=== PATIENT | female | born 1955 | race Caucasian/White ===

== ENCOUNTER 2016-08-02 08:45 | Outpatient (RCR) | payer MEDICARE, MEDICAID ==
[~2016-08-02 08:45] MED LIST: ADV500INH INH; ALBU0.63 INH; ALBU17IN INH; ALLO100T PO; AMBI5TAB PO; AMIT100TA PO; BACL10TA2 PO; CLON0.5T PO; DILA4TAB PO; DULO1CAP2 PO; DULO30CA PO; HYDR25T PO; LIDO1OIN2 TOP; LIDO5DIS36 TD; LYRI150C PO; MACR100C3 PO; MULTCAP PO; NEUR300C PO; PANT40TA2 PO; PROP1TAB29 PO; REQU0.5T PO; ROBA750T4 PO; SING10TA32 PO; SYMB80INH INH; TIOT18INH INH; TOPA50TA7 PO; TRAZ50TA4 PO; VIST25CA PO; VITA100066 PO; VITA500T3 PO; [UNRECOGNIZED DRUG - CODE] PO; [UNRECOGNIZED DRUG - OTHER] PO
== END 2016-08-03 | disposition home or self-care (01) ==
LOC: M OUTALCOH 08:45
PROVIDERS: ATTEND Psychiatry & Neurology Psychiatry
DX: F10.20 Alcohol dependence, uncomplicated (principal); F11.20 Opioid dependence, uncomplicated

== ENCOUNTER → 2016-08-31 | Outpatient (RCR) | payer MEDICARE, MEDICAID | LOC: M OUTALCOH 08-04 08:44 | PROVIDERS: ATTEND Psychiatry & Neurology Psychiatry | DX: F10.20 Alcohol dependence, uncomplicated (principal); F11.20 Opioid dependence, uncomplicated ==

== ENCOUNTER → 2016-09-09 | Outpatient (CLI) | payer MEDICARE, MEDICAID ==
[~2016-09-09] MED LIST changes: +BUPIVACAINE HCL 0.25% 30 ML VIAL As Ordered ONE; +ISOVUE-M 300 61% 15ML VIAL (Q9967) As Ordered ONE; +LIDOCAINE 1% SDV INJ 30 ML VIAL As Ordered ONE; +TRIAMCINOLONE ACETONIDE SUSP 40 MG/ML VIAL (J3301) As Ordered ONE
--- NOTE | 2016-09-09 15:04 | REP ---
PARTIAL LUMBAR SPINE SERIES: TWO VIEWS. HISTORY: Radiofrequency facet block for pain. 1 minute 29 seconds of fluoroscopy time is reported. FINDINGS: A sequence of two fluoroscopically obtained last image hold spot radiographs of the lumbar spine document various needle positions associated with facet ablation injection procedure. Signed by Asad Vinson MD 09/09/2016 04:27 P
--- NOTE | 2016-09-15 01:39 | ECWPNPC ---
PATIENT NAME: NICK CARTAGENA : 1955 GENDER: FEMALE VISIT DATE: 09/09/2016 DISCHARGE DATE: 09/09/16 1250 VISIT LOCKED DATE TIME: PHYSICIAN: ARSALAN JOSEPH RESOURCE: ARSALAN JOSEPH REASON FOR APPOINTMENT 1. RF FACET LEFT SIDE HISTORY OF PRESENT ILLNESS HISTORY OF PRESENT ILLNESS: PAIN THE PATIENT DESCRIBES THE PAIN... FALL RISK SCREENING: SCREENING :NO FALLS IN THE PAST YEAR CURRENT MEDICATIONS TAKING GABAPENTIN 600 MG TABLET 1 CAPSULE ORALLY AT BEDTIME FOR PAIN, NOTES: 09/08/162299 TAKING LIDODERM 5 % PATCH 3 PATCHES TO INTACT SKIN REMOVE AFTER 12 HOURS EXTERNALLY ONCE A DAY, NOTES: 09/07/161999 TAKING TRAZODONE HCL 100 MG TABLET 1 TABLET AT BEDTIME NEEDED ORALLY ONCE A DAY, NOTES: 09/08/162299 TAKING VITAMIN B-6 100 MG TABLET ORALLY DAILY, NOTES: 09/09/16729 TAKING VITAMIN D 2000 UNIT CAPSULE ORALLY DAILY, NOTES: 09/09/16729 TAKING MULTIVITAMIN TABLET CHEWABLE ORALLY DAILY, NOTES: 09/09/16729 TAKING EPIPEN 2-CELIO 0.3 MG/0.3ML SOLUTION AUTO-INJECTOR DIRECTED INJECTION DIRECTED, NOTES: NONE RECENTLY TAKING SINGULAIR 10 MG TABLET 1 TABLET IN THE EVENING ORALLY ONCE A DAY, NOTES: 09/08/162299 TAKING ATORVASTATIN CALCIUM 20 MG TABLET 1 TABLET ORALLY ONCE A DAY, NOTES: 09/09/16729 TAKING CYMBALTA 60 MG CAPSULE DELAYED RELEASE PARTICLES 1 CAPSULE ORALLY WITH FOOD ONCE A DAY FOR PAIN, NOTES: 09/09/16729 TAKING CYMBALTA 30 MG CAPSULE DELAYED RELEASE PARTICLES 1 CAPSULE ORALLY ONCE A DAY FOR PAIN, NOTES: 09/09/16729 TAKING ASPIRIN ADULT LOW DOSE 81 MG TABLET DELAYED RELEASE 1 TABLET ORALLY ONCE A DAY, NOTES: 09/09/16729 TAKING VENTOLIN HFA 90 MCG/ACT AEROSOL SOLUTION 2 PUFFS NEEDED INHALATION EVERY 4 HRS, NOTES: 2-3 DAYS AGO TAKING SPIRIVA HANDIHALER 18 MCG CAPSULE 1 CAPSULE INHALATION ONCE A DAY, NOTES: 09/09/16729 TAKING PANTOPRAZOLE SODIUM 40 MG TABLET DELAYED RELEASE 1 TABLET ORALLY ONCE A DAY, NOTES: 09/09/16729 TAKING SYMBICORT 80-4.5 MCG/ACT AEROSOL 2 PUFFS INHALATION TWICE A DAY, NOTES: 09/09/16 0730 TAKING LYRICA 150 MG CAPSULE 1 CAPSULE ORALLY TWICE A DAY FOR PAIN, NOTES: 09/08/16 1400 TAKING ALBUTEROL SULFATE (2.5 MG/3ML) 0.083% NEBULIZATION SOLUTION 3 ML INHALATION THREE TIMES A DAY NEEDED, NOTES: NONE RECENTLY TAKING COMPRESSOR/NEBULIZER - MISCELLANEOUS DIRECTED TUBING AND INHALATION DEVICE. J44.9 TAKING BUSPIRONE HCL 5 MG TABLET 1 TABLET ORALLY THREE TIMES A DAY, NOTES: 09/09/16 0730 TAKING REQUIP 2 MG TABLET DIRECTED ORALLY DAILY, NOTES: 09/08/16 2300 NOT-TAKING [facility] FLUTICASONE PROPIONATE 50 MCG/ACT SUSPENSION 1 SPRAY IN EACH NOSTRIL NASALLY BID NOT-TAKING GLUCOMETER . GLUCOMETER E11.9 - 3 TIMES PER WEEK NOT-TAKING GE100 TEST STRIPS _ LANCETS DIRECTED E11.9 3 TIMES PER WEEK NOT-TAKING LANCETS 30G . MISCELLANEOUS E11.9 _ THREE TIMES PER WEEK MEDICATION LIST REVIEWED AND RECONCILED WITH THE PATIENT PAST MEDICAL HISTORY ANXIETY ASTHMA BREAST CANCEER KIDNEY STONES DEPRESSION FIBROMYALGIA PNEUMONIA RESTLESS LEGS SHINGLES ALLERGIES HEPARIN COMBINATION: HIVES: ALLERGY SULFASALAZINE: ASTHMA: ALLERGY VANCOMYCIN HCL: ANAPHYLAXIS: ALLERGY SULFITES: ASTHMA: ALLERGY STRAWBERRIES: HIVES: ALLERGY CYCLOBENZAPRINE HCL: DISORIENTATION: ALLERGY TAPE: BLISTERS: ALLERGY BEES: ANAPHYLAXIS: ALLERGY SURGICAL HISTORY HEART CATHERITIZATION- DR. MALDONADO 05/18/16 SOCIAL HISTORY GENERAL: TOBACCO USE ARE YOU A:NONSMOKER LEARNING BARRIERS / SPECIAL NEEDS ORIENTED TO PLAN OF CARE: PATIENT, PAIN MANAGEMENT PATIENT, ORIENTED TO PLAN OF CARE: PATIENT, PAIN MANAGEMENT PATIENT. NEW PATIENT PAIN DIARY TODAY'S VISITNOTES FROM 0-10, WHAT LEVEL IS YOUR PAIN TODAY?0 PAIN CLINIC PFS, CLERGY, PUBLIC HEALTH REFERRALS PFS REFERRAL NEEDED?NO CLERGY REFERRAL NEEDED?NO PUBLIC HEALTH REFERRAL NEEDED?NO WAS THE PROVIDER NOTIFIED OF ANY PERTINENT INFO?NO PFS REFERRAL NEEDED?NO CLERGY REFERRAL NEEDED?NO PUBLIC HEALTH REFERRAL NEEDED?NO WAS THE PROVIDER NOTIFIED OF ANY PERTINENT INFO?NO HOSPITALIZATION/MAJOR DIAGNOSTIC PROCEDURE BRONCHITIS WITH [facility] INVOLVEMENT AT [facility] 09/2015 [facility] 05/25[facility]2014 REVIEW OF SYSTEMS CONSTITUTIONAL: ANY CHANGE IN YOUR MEDICAL CONDITION? NO . CHILLS NO . FEVER NO . INFECTION: DO YOU HAVE NEW INFECTIONS? NO . DO YOU HAVE HISTORY OF MRSA? NO . MUSCULOSKELETAL: ANY NEW PATTERNS OF PAIN OR NUMBNESS? YES, LEFT ARIAS AND LEFT LATERAL LOWER LEG BURNING PAIN FOR PAST 6 WEEKS . GASTROENTEROLOGY: ANY NEW CHANGE IN BOWEL CONTROL? NO . GENITOURINARY: ANY NEW CHANGE IN BLADDER CONTROL? NO . IS THERE A CHANCE YOU COULD BE ? NO . HEMATOLOGY/LYMPH: DO YOU TAKE ANY BLOOD THINNERS? (FOR EXAMPLE- COUMADIN, PLAVIX, AGGRENOX, PLATEL, PRADAXA, OR XARELTO) NO . WHEN WAS YOUR LAST DOSE? DATE: TIME: . NEUROLOGY: HAVE YOU FALLEN IN THE PAST 6 MONTHS? NO . ANY NEW EXTREMITY NUMBNESS OR WEAKNESS? NO . CARDIOLOGY: DO YOU HAVE A PACEMAKER OR DEFIBRILLATOR? NO . RESPIRATORY: HAVE YOU BEEN SICK IN THE PAST WEEK? NO . FEVER NO . FLU LIKE SYMPTOMS? NO . COUGH NO . INTEGUMENTARY: DO YOU HAVE ANY RASHES OR OPEN SORES? NO . ALLERGIC/IMMUNO: ARE YOU ALLERGIC TO SHELLFISH OR IV DYE? NO . ANY NEW ALLERGIES? NO . PSYCHIATRIC: DO YOU HAVE THOUGHTS OF HURTING YOURSELF OR SOMEONE ELSE? NO . ARE YOU ABUSED, NEGLECTED, OR IN AN UNSAFE ENVIRONMENT? NO . ENDOCRINOLOGY: ARE YOU DIABETIC? YES, NO FSBS, DIET CONTROLLED . OTHER: DO YOU NEED ANY PRESCRIPTIONS? YES . IF YES, PLEASE LIST: LIDODERM PATCHES, LYRICA 150MG, NEURONTIN 600MG . ANY NEW PROBLEMS WITH YOUR MEDICATIONS? NO . WHEN DID YOU LAST EAT? 09-08-16 1900 . WHEN DID YOU LAST DRINK? 09-09-16 0730 . WHAT DID YOU LAST DRINK? WATER . NAME OF PERSON DRIVING YOU HOME? KENDRICK . DO YOU HAVE ANY OTHER QUESTIONS OR CONCERNS NO . REVIEWED BY: PROVIDER: . VITAL SIGNS WT 236 LBS, HT 63 IN, BMI 41.80 INDEX, BP 135/69 MM HG, HR 81 /MIN, RR 16 /MIN, TEMP 96.6 F, OXYGEN SAT % 96%, NA INITIALS SC 10:07, REVIEWED BY: CM. ASSESSMENTS SPONDYLOSIS WITHOUT MYELOPATHY OR RADICULOPATHY, LUMBOSACRAL REGION - M47.817 (PRIMARY) TREATMENT OTHERS REFILL GABAPENTIN TABLET, 600 MG, 1 CAPSULE, ORALLY, AT BEDTIME FOR PAIN, 90 DAY(S), 90, REFILLS 0, NOTES: 09/08/16 2300 REFILL LIDODERM PATCH, 5 %, 3 PATCHES TO INTACT SKIN REMOVE AFTER 12 HOURS, EXTERNALLY, ONCE A DAY, 60 DAYS, 180, REFILLS 0, NOTES: 09/07/16 2000 REFILL CYMBALTA CAPSULE DELAYED RELEASE PARTICLES, 60 MG, 1 CAPSULE, ORALLY WITH FOOD, ONCE A DAY FOR PAIN, 90 DAY(S), 90, REFILLS 0, NOTES: 09/09/16 0730 REFILL CYMBALTA CAPSULE DELAYED RELEASE PARTICLES, 30 MG, 1 CAPSULE, ORALLY, ONCE A DAY FOR PAIN, 90 DAY(S), 90, REFILLS 0, NOTES: 09/09/16 0730 REFILL LYRICA CAPSULE, 150 MG, 1 CAPSULE, ORALLY (CODE D FOR CHRONIC PAIN), TWICE A DAY FOR PAIN MDD2, 60 DAYS, 120, REFILLS 0, NOTES: 09/08/16 1400 PROCEDURES PN RADIOFREQUENCY PRE PROCEDURE DIAGNOSES LUMBOSACRAL SPONDYLOSIS POST PROCEDURE DIAGNOSES LUMBOSACRAL SPONDYLOSIS PROCEDURE LEFT L5-S1 FACET RADIOFREQUENCY SURGEON DR. ARSALAN JOSEPH ANGLE SHEAR OPERATOR NONE ANESTHESIA LOCAL PRE PROCEDURE REPORT THE PATIENT HAS HISTORY OF CHRONIC LOW BACK PAIN. I EVALUATE THE PATIENT AND REVIEWED THE CHART. I WENT OVER THE RISKS, ALTERNATIVES, AND BENEFITS ASSOCIATED WITH THIS PROCEDURE. THE PATIENT WOULD LIKE TO PROCEED AND GIVE CONSENT TO PERFORMED THE PROCEDURE. THE PATIENT DENIES UNEXPLAINABLE WEIGHT LOSS, FEVER, CHILLS, OR NEW CHANGES IN URINARY OR BOWEL CONTROL DESCRIPTION OF PROCEDURE THE PATIENT WAS BROUGHT TO THE PROCEDURE ROOM AND PLACED IN THE PRONE POSITION. THE LUMBOSACRAL AREA WAS CLEANED WITH CHLORAPREP SOLUTION AND DRAPED ASEPTICALLY. THE PROCEDURE WAS DONE UNDER STERILE CONDITIONS. I CHECKED LATERALITY AND THE LEVEL WHERE THE PROCEDURE WAS GOING TO BE PERFORMED WITH THE PATIENT AND THE SUPPORTING STAFF AT THE MOMENT OF THE TIME OUT IN THE PROCEDURE ROOM. UNDER FLUOROSCOPIC GUIDANCE, TARGETS WERE SELECTED AT THE INTERSECTION OF THE LEFT TRANSVERSE PROCESS L5-S1 WITH ITS RESPECTIVE SUPERIOR ARTICULAR PROCESS. LIDOCAINE WAS USED TO NUMB THE SKIN AND THE SUBCUTANEOUS TISSUE BELOW IT. RADIOFREQUENCY NEEDLES 22-GAUGE 15 CM LONG WITH 10 MM ACTIVE CURVE TIP WERE ADVANCED UNDER FLUOROSCOPIC GUIDANCE AND FOLLOWING PATIENT FEEDBACK UNTIL THE TARGET AREA WAS REACHED. POSITION OF THE NEEDLES WAS VERIFIED WITH AP AND LATERAL VIEWS. AFTER PROPER POSITION OF THE NEEDLE WAS ACHIEVED, WE WORKED WITH THE LEFT SELECTED MEDIAN BRANCHES OF L4 AND THE DORSAL RAMI OF L5. WE MEASURED THE CORRESPONDING IMPEDANCES, SENSORY STIMULATION AND MOTOR RESPONSES INDICATED IN THE RADIOFREQUENCY WORKSHEET. POSITION OF THE NEEDLES WAS VERIFIED AGAIN WITH AP AND LATERAL VIEWS. LIDOCAINE 1%, 2 ML, WAS INJECTED AT EACH LEVEL. RADIOFREQUENCY WAS DONE AT EACH LEVEL AT 80 DEGREES FOR 90 SECONDS. AFTER RADIOFREQUENCY WAS DONE, THE PATIENT RECEIVED BUPIVACAINE 0.125% 1 CC WITH KENALOG 5 MG AT EACH SITE. THERE WAS NO EVIDENCE OF BLOOD, PARESTHESIA OR CEREBROSPINAL FLUID DURING THE PROCEDURE. THE PATIENT WAS SENT TO THE RECOVERY ROOM. THE PATIENT WAS MOVING THE EXTREMITIES AND DOING WELL. THERE WAS NO COMPLICATION DURING THE PROCEDURE. FLUOROSCOPY TIME WAS 1 MINUTE 29 SECONDS POST PROCEDURE NOTE THE PATIENT WILL BE SEEN IN A FOLLOW UP IN THE NEXT FEW WEEKS. INSTRUCTIONS WERE GIVEN, QUESTIONS WERE ANSWERED, AND THE PATIENT EXPRESSED UNDERSTANDING AND AGREES WITH THE PLAN. INSTRUCTIONS WERE GIVEN, QUESTIONS WERE ANSWERED, PATIENT REPORTS UNDERSTANDING AND AGREES WITH THE PLAN. I, MALIK PALACIOS, DOCUMENTED THE ABOVE INFORMATION ACTING A SCRIBE FOR DR. JOSEPH. I HAVE REVIEWED THE ABOVE DOCUMENT, WRITTEN BY MALIK PALACIOS SCRIBE AND I VERIFY THAT IT IS ACCURATE. DIAGNOSTIC IMAGING [facility] FACET BLOCK (PAIN)[id number] PROCEDURE CODES 28413 DESTROY LUMB/SAC FACET JNT 6045F RADXPS IN END [id number] PXD DISPOSITION & COMMUNICATION FOLLOW UP 3 WEEKS ELECTRONICALLY SIGNED BY ARSALAN JOSEPH MD ON 09/12/2016 AT 01:21 PM EDT DISCLAIMER : THIS IS A VISIT SUMMARY EXTRACTED FROM THE [employer] CHART. IT IS NOT A COPY OF THE [employer] PROGRESS NOTE. MTDD
== END ==
LOC: M PAIN 10:10
PROVIDERS: ATTEND Anesthesiology
DX: G89.29 Other chronic pain (principal); M47.817 Spondylosis without myelopathy or radiculopathy, lumbosacral region; F41.9 Anxiety disorder, unspecified; J45.909 Unspecified asthma, uncomplicated; E11.9 Type 2 diabetes mellitus without complications; F32.9 Major depressive disorder, single episode, unspecified; M79.7 Fibromyalgia; G25.81 Restless legs syndrome; Z79.82 Long term (current) use of aspirin; Z79.899 Other long term (current) drug therapy; Z88.8 Allergy status to other drugs, medicaments and biological substances; Z88.2 Allergy status to sulfonamides; Z88.1 Allergy status to other antibiotic agents; Z91.018 Allergy to other foods; L23.1 Allergic contact dermatitis due to adhesives; Z91.030 Bee allergy status; Z85.3 Personal history of malignant neoplasm of breast; Z86.19 Personal history of other infectious and parasitic diseases
CPT/HCPCS: 64635; J3301; Q9967

== ENCOUNTER 2016-09-28 10:00 | Outpatient (RCR) | payer MEDICARE, MEDICAID ==
[~2016-09-28 10:00] MED LIST changes: -BUPIVACAINE HCL 0.25% 30 ML VIAL As Ordered ONE; -ISOVUE-M 300 61% 15ML VIAL (Q9967) As Ordered ONE; -LIDOCAINE 1% SDV INJ 30 ML VIAL As Ordered ONE; -TRIAMCINOLONE ACETONIDE SUSP 40 MG/ML VIAL (J3301) As Ordered ONE
== END 2016-10-01 ==
LOC: M OUTALCOH 10:00
PROVIDERS: ATTEND Psychiatry & Neurology Psychiatry
DX: F11.20 Opioid dependence, uncomplicated (principal); F10.20 Alcohol dependence, uncomplicated

== ENCOUNTER 2016-10-25 13:00 | Outpatient (RCR) | payer MEDICARE, MEDICAID | END 2016-10-31 | LOC: M OUTALCOH 13:00 | PROVIDERS: ATTEND Psychiatry & Neurology Psychiatry | DX: F11.20 Opioid dependence, uncomplicated (principal); F10.20 Alcohol dependence, uncomplicated ==

== ENCOUNTER → 2016-11-22 | Outpatient (CLI) | payer MEDICARE, MEDICAID ==
--- NOTE | 2016-11-22 09:10 | REP ---
Right upper quadrant sonography: History: Epigastric pain. Comparison study: No comparison study. Findings: Scanning through the right upper quadrant of the abdomen demonstrates a normal sized, thin-walled gallbladder without evidence of stone or polyp. Common bile duct is normal measuring 0.3 cm in greatest diameter. No focal liver lesion is seen. Liver size is normal. No pancreatic abnormality is observed. No right renal abnormality is seen. There is no evidence of ascites. The right kidney measures 12.6 x 6.1 x 5.5 cm. There is a 7 mm echogenic focus in the upper pole right kidney which could be an intrarenal calculus. Impression: Possible 7 mm intrarenal calculus right kidney. Otherwise negative right upper quadrant sonography. Signed by Asad Vinson MD 11/22/2016 09:01 A
== END ==
LOC: M RAD 08:31
PROVIDERS: ATTEND Nurse Practitioner Family
DX: F10.20 Alcohol dependence, uncomplicated (principal); K21.9 Gastro-esophageal reflux disease without esophagitis; R10.13 Epigastric pain

== ENCOUNTER → 2016-11-23 | Outpatient (CLI) | payer MEDICARE, MEDICAID ==
[~2016-11-23] MED LIST changes: +E-Z-GAS II EFFERVESCENT PACKET (SODIUM BICARB./CITRIC ACID/SIMETHICONE) As Ordered ONE; +E-Z-HD 98% w/w 340GM SUSP BTL As Ordered ONE; +E-Z-PAQUE 96% w/w SUSP 176GM BTL As Ordered ONE
--- NOTE | 2016-11-23 16:34 | REP ---
UPPER GI, AIR CONTRAST: The procedure was performed under the direct supervision of Dr. Vinson. The images were reviewed with Dr. Vinson. The library customer service clerk film shows no organomegaly or pathological masses. The intestinal gas pattern is nonspecific. There are calcifications overlying the kidneys bilaterally, which may represent renal stones. There are bowel sutures noted in the epigastric region and left abdomen consistent with the patient's history of gastric bypass. Liquid barium was administered in the erect and prone oblique positions. The oral and pharyngeal stages of deglutition are unremarkable. Esophageal transport is prompt and efficient and there is no esophagitis, stricture, or mucosal ring. There is a small sliding type hiatal hernia present. There is gastroesophageal esophageal reflux demonstrated to the level of the starr. The contrast flows through the stomach remnant and anastomosis without delay. There is a persistent barium collection which measures 1 cm. This likely represents an anastomotic ulcer. The visualized portion of the proximal small bowel appears normal in course and caliber. IMPRESSION: 1. There are calcifications overlying the kidneys bilaterally which may represent renal stones. 2. There is a small sliding type hiatal hernia present. There is gastroesophageal reflux demonstrated to the level of the starr. 3. There is a persistent barium collection which measures 1 cm. This likely represents an anastomotic ulcer. 1 minute and 4 seconds of fluoroscopy time was utilized for this procedure. Reviewed by RAN Guzman 11/24/2016 12:21 PEdited and Signed by Asad Vinson MD 11/24/2016 03:48 P
== END ==
LOC: M RAD 08:46
PROVIDERS: ATTEND Nurse Practitioner Family
DX: K44.9 Diaphragmatic hernia without obstruction or gangrene (principal); N28.89 Other specified disorders of kidney and ureter; K21.9 Gastro-esophageal reflux disease without esophagitis; F10.20 Alcohol dependence, uncomplicated

== ENCOUNTER → 2016-11-24 | Outpatient (CLI) | payer MEDICARE, MEDICAID ==
[~2016-11-24] MED LIST changes: -E-Z-GAS II EFFERVESCENT PACKET (SODIUM BICARB./CITRIC ACID/SIMETHICONE) As Ordered ONE; -E-Z-HD 98% w/w 340GM SUSP BTL As Ordered ONE; -E-Z-PAQUE 96% w/w SUSP 176GM BTL As Ordered ONE
--- NOTE | 2016-12-15 00:11 | ECWPNPC ---
PATIENT NAME: NICK CARTAGENA : 1955 GENDER: FEMALE VISIT DATE: 11/24/2016 DISCHARGE DATE: 11/24/16 1008 VISIT LOCKED DATE TIME: PHYSICIAN: ADRIANNE WOMACK RESOURCE: ADRIANNE WOMACK REASON FOR APPOINTMENT 1. MEDS HISTORY OF PRESENT ILLNESS HISTORY OF PRESENT ILLNESS: PAIN THE PATIENT DESCRIBES THE PAIN... FALL RISK SCREENING: SCREENING :NO FALLS IN THE PAST YEAR TODAY'S VISIT: NOTES: RATES PAIN TODAY . IS STATUS POST LEFT L5-S1 RADIOFREQUENCY COMPLETED ON 09/09/16. PAIN BEGAN TO RETURN L>R ABOUT 3 WEEKS AGO. PAIN IS NOW RETURNING IN LEFT LEG AND RADIATES ALONG LATERAL THIGH TO THE LEVEL OF THE KNEE. IS NOTING DIFFICULTY WITH SLEEOING WITH NEURONTIN 600 MG.. CURRENT MEDICATIONS TAKING TRAZODONE HCL 100 MG TABLET 1 TABLET AT BEDTIME NEEDED ORALLY ONCE A DAY TAKING VITAMIN B-6 100 MG TABLET ORALLY DAILY TAKING VITAMIN D 2000 UNIT CAPSULE ORALLY DAILY TAKING MULTIVITAMIN TABLET CHEWABLE ORALLY DAILY TAKING ASPIRIN ADULT LOW DOSE 81 MG TABLET DELAYED RELEASE 1 TABLET ORALLY ONCE A DAY TAKING VENTOLIN HFA 90 MCG/ACT AEROSOL SOLUTION 2 PUFFS NEEDED INHALATION EVERY 4 HRS TAKING LIDODERM 5 % PATCH 3 PATCHES TO INTACT SKIN REMOVE AFTER 12 HOURS EXTERNALLY ONCE A DAY TAKING CYMBALTA 60 MG CAPSULE DELAYED RELEASE PARTICLES 1 CAPSULE ORALLY WITH FOOD ONCE A DAY FOR PAIN TAKING CYMBALTA 30 MG CAPSULE DELAYED RELEASE PARTICLES 1 CAPSULE ORALLY ONCE A DAY FOR PAIN TAKING PROBIOTIC - CAPSULE ORALLY TAKING ALBUTEROL SULFATE (2.5 MG/3ML) 0.083% NEBULIZATION SOLUTION 3 ML INHALATION THREE TIMES A DAY TAKING COMPRESSOR/NEBULIZER - MISCELLANEOUS DIRECTED TUBING AND INHALATION DEVICE. J44.9 TAKING BUSPIRONE HCL 5 MG TABLET 1 TABLET ORALLY THREE TIMES A DAY TAKING REQUIP 2 MG TABLET DIRECTED ORALLY DAILY TAKING SINGULAIR 10 MG TABLET 1 TABLET IN THE EVENING ORALLY ONCE A DAY TAKING ATORVASTATIN CALCIUM 20 MG TABLET 1 TABLET ORALLY ONCE A DAY TAKING SPIRIVA HANDIHALER 18 MCG CAPSULE 1 CAPSULE INHALATION ONCE A DAY TAKING SYMBICORT 80-4.5 MCG/ACT AEROSOL 2 PUFFS INHALATION TWICE A DAY TAKING EPIPEN 2-CELIO 0.3 MG/0.3ML SOLUTION AUTO-INJECTOR DIRECTED INJECTION DIRECTED TAKING PANTOPRAZOLE SODIUM 40 MG TABLET DELAYED RELEASE 1 TABLET ORALLY BID TAKING GABAPENTIN 600 MG TABLET 1 CAPSULE ORALLY AT BEDTIME FOR PAIN TAKING LYRICA 150 MG CAPSULE 1 CAPSULE ORALLY (CODE D FOR CHRONIC PAIN) TWICE A DAY FOR PAIN MDD2 NOT-TAKING [facility] FLUTICASONE PROPIONATE 50 MCG/ACT SUSPENSION 1 SPRAY IN EACH NOSTRIL NASALLY BID NOT-TAKING GLUCOMETER . GLUCOMETER E11.9 - 3 TIMES PER WEEK NOT-TAKING GE100 TEST STRIPS _ LANCETS DIRECTED E11.9 3 TIMES PER WEEK NOT-TAKING LANCETS 30G . MISCELLANEOUS E11.9 _ THREE TIMES PER WEEK MEDICATION LIST REVIEWED AND RECONCILED WITH THE PATIENT PAST MEDICAL HISTORY ANXIETY ASTHMA BREAST CANCEER KIDNEY STONES DEPRESSION FIBROMYALGIA PNEUMONIA RESTLESS LEGS SHINGLES ALLERGIES HEPARIN COMBINATION: HIVES: ALLERGY SULFASALAZINE: ASTHMA: ALLERGY VANCOMYCIN HCL: ANAPHYLAXIS: ALLERGY SULFITES: ASTHMA: ALLERGY STRAWBERRIES: HIVES: ALLERGY CYCLOBENZAPRINE HCL: DISORIENTATION: ALLERGY TAPE: BLISTERS: ALLERGY BEES: ANAPHYLAXIS: ALLERGY REVIEW OF SYSTEMS CONSTITUTIONAL: ANY CHANGE IN YOUR MEDICAL CONDITION? NO . CHILLS NO . FEVER NO . INFECTION: DO YOU HAVE NEW INFECTIONS? NO . DO YOU HAVE HISTORY OF MRSA? NO . MUSCULOSKELETAL: ANY NEW PATTERNS OF PAIN OR NUMBNESS? YES PT HAD RF FACET 09/09, REPORTS SHE HAD GOOD RELIEF UP UNTIL 2-3 WEEKS AGO, NOW FEELS THE BURNING/NUMBNESS GOING DOWN LEGS, AND THE PAIN IN HER BACK IS STARTING TO RETURN. . GASTROENTEROLOGY: ANY NEW CHANGE IN BOWEL CONTROL? NO . GENITOURINARY: ANY NEW CHANGE IN BLADDER CONTROL? NO . IS THERE A CHANCE YOU COULD BE ? NO . HEMATOLOGY/LYMPH: DO YOU TAKE ANY BLOOD THINNERS? (FOR EXAMPLE- COUMADIN, PLAVIX, AGGRENOX, PLATEL, PRADAXA, OR XARELTO) NO . WHEN WAS YOUR LAST DOSE? DATE: TIME: . NEUROLOGY: HAVE YOU FALLEN IN THE PAST 6 MONTHS? NO . ANY NEW EXTREMITY NUMBNESS OR WEAKNESS? NO . CARDIOLOGY: DO YOU HAVE A PACEMAKER OR DEFIBRILLATOR? NO . RESPIRATORY: HAVE YOU BEEN SICK IN THE PAST WEEK? YES PT REPORTS A FREQUENT PRODUCTIVE COUGH, USING NEBULIZER. DENIES FEVER. . FEVER NO . FLU LIKE SYMPTOMS? NO . COUGH PRODUCTIVE . INTEGUMENTARY: DO YOU HAVE ANY RASHES OR OPEN SORES? NO . ALLERGIC/IMMUNO: ARE YOU ALLERGIC TO SHELLFISH OR IV DYE? NO . ANY NEW ALLERGIES? NO . PSYCHIATRIC: DO YOU HAVE THOUGHTS OF HURTING YOURSELF OR SOMEONE ELSE? NO . ARE YOU ABUSED, NEGLECTED, OR IN AN UNSAFE ENVIRONMENT? NO . ENDOCRINOLOGY: ARE YOU DIABETIC? YES . OTHER: DO YOU NEED ANY PRESCRIPTIONS? YES . IF YES, PLEASE LIST: ____NEURONTINE, LIDOCAINE PATCHES . ANY NEW PROBLEMS WITH YOUR MEDICATIONS? NO . WHEN DID YOU LAST EAT? ____ . WHEN DID YOU LAST DRINK? ____ . WHAT DID YOU LAST DRINK? ____ . NAME OF PERSON DRIVING YOU HOME? ____ . DO YOU HAVE ANY OTHER QUESTIONS OR CONCERNS YES PT REPORTS SHE IS HAVING DIFFICULTY SLEEPING AFTER TAKING NEURONTIN 600 MG TABLETS, WOULD LIKE TO RETURN TO THE 300 MG CAPSULES . REVIEWED BY: PROVIDER: ADRIANNE SETHI . VITAL SIGNS WT 225.6 LBS, HT 63 IN, BMI 39.96 INDEX, BP 128/77 MM HG, HR 101 /MIN, RR 16 /MIN, TEMP 98.1 F, OXYGEN SAT % 96%, SAFE IN ENV? (Y/N) YES, NA INITIALS MN 09:18, REVIEWED BY: FRANTZ. EXAMINATION GENERAL EXAMINATION: PSYCHALERT , ORIENTED X 3 , APPROPRIATE MOOD AND AFFECT . LUNGS:CLEAR TO AUSCULTATION BILATERALLY. HEART:HEART RATE REGULAR. MUSCULOSKELETAL:TENDER OVER LEFT LUMBAR FACETS AND ACROSS LEFT SACRUM. TRIGGER POINTS NOTED IN THIS AREA. TENDER OVER BILATERAL TROCANETERIC REGIONS. SLOW TO RISE TO STANDING POSITION. ASSESSMENTS LUMBAR FACET ARTHROPATHY - M12.88 (PRIMARY) SPONDYLOSIS OF LUMBOSACRAL REGION WITHOUT MYELOPATHY OR RADICULOPATHY - M47.817 SPONDYLOSIS WITHOUT MYELOPATHY OR RADICULOPATHY, LUMBOSACRAL REGION - M47.817 TREATMENT LUMBAR FACET ARTHROPATHY REFILL LIDODERM PATCH, 5 %, 3 PATCHES TO INTACT SKIN REMOVE AFTER 12 HOURS, EXTERNALLY, ONCE A DAY, 60 DAYS, 180, REFILLS 0 CONTINUE GABAPENTIN TABLET, 600 MG, 1 CAPSULE, ORALLY, AT BEDTIME FOR PAIN START GABAPENTIN CAPSULE, 300 MG, 1 CAPSULE, ORALLY, TAKE 2 CAPS AT BEDTIME, 90 DAY(S), 180, REFILLS 2 [facility] MRI SPINE, L.S. WITHOUT [id number],SUSAN M 11/24/2016 9:48:52 AM > INCREASED PAIN, FELL WITH AUDIBLE POP. POSSIBLE PARS DEFECT TRIGGER POINT 3 + LUISJOSE EDUARDOADRIANNE M 11/24/2016 9:50:38 AM > LOW BACK LEFT SIDE NOTES: FALLS CARE PLAN: 1. RECOMMEND REMOVING ALL THROW RUGS. 2. RECOMMEND NIGHT LIGHTS 3. RECOMMEND WEARING RUBBER SOLED SHOES AND TO NOT GO BAREFOOT. 4.. ADVISED TO CHANGE POSITION SLOWLY FROM SUPINE TO STANDING TO AVOID DIZZINESS. 5. ADVISED TO USE ASSISTIVE DEVICE SUCH CANE OR WALKER 6. KEEP PORTABLE PHONE READILY AVAILABLE, #128 - SCREENING BMI AND F/U PLAN IN : BMI ABOVE NORMAL TODAY. DISCUSSED WITH PATIENT NUTRITIONAL FOOD CHOICES TO ASSIST WITH WEIGHT LOSS. RECCOMMENDED REDUCING SALT, SUGAR, SODA INTAKE. RECOMMEND INCREASE ACTIVITY TO INCLUDE WALKING ON A REGULAR BASIS. PROCEDURE CODES FA211 ESTABILISHED PATIENT [facility] FACILITY CHARGE G8783 BP SCR PRFRM RCMDD DEFIND SCR INTVL G8730 PAIN ASSESS POS TOOL F/U PLAN DOC 3016F PT SCRND UNHLTHY OH USE 1124F ACP DISCUSS-NO [id number] DOCD 1036F TOBACCO NON-USER 0518F FALL PLAN OF CARE DOCD G8427 DOC MEDS VERIFIED W/PT OR RE G8417 BMI >=30 CALCUATE W/FOLLOWUP 3288F FALL RISK ASSESSMENT DOCD DISPOSITION & COMMUNICATION FOLLOW UP REASON: CHECK AUTH FOR MRI LUMBAR SPINE AND FORTRIGGER POINTS LEFT LOW BACK ELECTRONICALLY SIGNED BY CHRISTOPHE BOWER ON 12/14/2016 AT 08:47 AM EDT DISCLAIMER : THIS IS A VISIT SUMMARY EXTRACTED FROM THE [employer] CHART. IT IS NOT A COPY OF THE [employer] PROGRESS NOTE. SCOUT
== END | disposition home or self-care (01) ==
LOC: M PAIN 09:00
PROVIDERS: ATTEND Nurse Practitioner Family
DX: G89.29 Other chronic pain (principal); M47.817 Spondylosis without myelopathy or radiculopathy, lumbosacral region; M12.88 Other specific arthropathies, not elsewhere classified, other specified site; F41.9 Anxiety disorder, unspecified; J45.909 Unspecified asthma, uncomplicated; F33.9 Major depressive disorder, recurrent, unspecified; M79.7 Fibromyalgia; B02.9 Zoster without complications; Z85.3 Personal history of malignant neoplasm of breast; Z87.442 Personal history of urinary calculi; Z87.09 Personal history of other diseases of the respiratory system; Z79.899 Other long term (current) drug therapy; Z79.82 Long term (current) use of aspirin; Z88.8 Allergy status to other drugs, medicaments and biological substances; Z91.018 Allergy to other foods; L23.1 Allergic contact dermatitis due to adhesives; Z91.030 Bee allergy status

== ENCOUNTER → 2016-12-21 | Outpatient (CLI) | payer MEDICARE, MEDICAID ==
[~2016-12-21] MED LIST changes: +BUPIVACAINE HCL 0.25% 10 ML VIAL As Ordered ONE; +BUPIVACAINE HCL 0.25% 30 ML VIAL As Ordered ONE; -DILA4TAB PO; +DILA4TAB13 PO; +HYDR-3363 PO; -HYDR25T PO; -LIDO5DIS36 TD; +LIDO5DIS41 TD; -MACR100C3 PO; +MACR100C43 PO; -REQU0.5T PO; +REQU1TAB15 PO; -TOPA50TA7 PO; +TOPA50TA8 PO; +TRAZ50TA11 PO; -TRAZ50TA4 PO; +TRIAMCINOLONE ACETONIDE SUSP 40 MG/ML VIAL (J3301) As Ordered ONE; +cholesterol pill PO
--- NOTE | 2017-01-04 23:43 | ECWPNPC ---
PATIENT NAME: NICK CARTAGENA : 1955 GENDER: FEMALE VISIT DATE: 12/21/2016 DISCHARGE DATE: 12/21/16943 VISIT LOCKED DATE TIME: PHYSICIAN: ARSALAN JOSEPH RESOURCE: ARSALAN JOSEPH REASON FOR APPOINTMENT 1. LOW BACK HISTORY OF PRESENT ILLNESS HISTORY OF PRESENT ILLNESS: PAIN THE PATIENT DESCRIBES THE PAIN... FALL RISK SCREENING: SCREENING :NO FALLS IN THE PAST YEAR CURRENT MEDICATIONS TAKING TRAZODONE HCL 100 MG TABLET 1 TABLET AT BEDTIME NEEDED ORALLY ONCE A DAY, NOTES: 12-20-162099 TAKING VITAMIN B-6 100 MG TABLET ORALLY DAILY, NOTES: 12-21-16629 TAKING VITAMIN D 2000 UNIT CAPSULE ORALLY DAILY, NOTES: 12-21-16629 TAKING MULTIVITAMIN TABLET CHEWABLE ORALLY DAILY, NOTES: 629 TAKING ASPIRIN ADULT LOW DOSE 81 MG TABLET DELAYED RELEASE 1 TABLET ORALLY ONCE A DAY, NOTES: 629 TAKING VENTOLIN HFA 90 MCG/ACT AEROSOL SOLUTION 2 PUFFS NEEDED INHALATION EVERY 4 HRS, NOTES: NONE TAKING CYMBALTA 60 MG CAPSULE DELAYED RELEASE PARTICLES 1 CAPSULE ORALLY WITH FOOD ONCE A DAY FOR PAIN, NOTES: 12-21-16629 TAKING CYMBALTA 30 MG CAPSULE DELAYED RELEASE PARTICLES 1 CAPSULE ORALLY ONCE A DAY FOR PAIN, NOTES: 12-21-16629 TAKING PROBIOTIC - CAPSULE ORALLY , NOTES: 12-21-16629 TAKING LYRICA 150 MG CAPSULE 1 CAPSULE ORALLY (CODE D FOR CHRONIC PAIN) TWICE A DAY FOR PAIN MDD2, NOTES: 12-20-16 0800 TAKING LIDODERM 5 % PATCH 3 PATCHES TO INTACT SKIN REMOVE AFTER 12 HOURS EXTERNALLY ONCE A DAY, NOTES: 12-20-16 TAKING GABAPENTIN 300 MG CAPSULE 1 CAPSULE ORALLY TAKE 2 CAPS AT BEDTIME, NOTES: 12-20-162099 TAKING ALBUTEROL SULFATE (2.5 MG/3ML) 0.083% NEBULIZATION SOLUTION 3 ML INHALATION THREE TIMES A DAY, NOTES: NONE TAKING COMPRESSOR/NEBULIZER - MISCELLANEOUS DIRECTED TUBING AND INHALATION DEVICE. J44.9 TAKING BUSPIRONE HCL 5 MG TABLET 1 TABLET ORALLY THREE TIMES A DAY, NOTES: 12-21-16629 TAKING REQUIP 2 MG TABLET DIRECTED ORALLY DAILY, NOTES: 6-19-17 2100 TAKING SINGULAIR 10 MG TABLET 1 TABLET IN THE EVENING ORALLY ONCE A DAY, NOTES: 12-21-16629 TAKING ATORVASTATIN CALCIUM 20 MG TABLET 1 TABLET ORALLY ONCE A DAY, NOTES: 12-21-16629 TAKING SPIRIVA HANDIHALER 18 MCG CAPSULE 1 CAPSULE INHALATION ONCE A DAY, NOTES: 12-21-16629 TAKING SYMBICORT 80-4.5 MCG/ACT AEROSOL 2 PUFFS INHALATION TWICE A DAY, NOTES: 12-21-16629 TAKING EPIPEN 2-CELIO 0.3 MG/0.3ML SOLUTION AUTO-INJECTOR DIRECTED INJECTION DIRECTED TAKING PANTOPRAZOLE SODIUM 40 MG TABLET DELAYED RELEASE 1 TABLET ORALLY BID, NOTES: 12-21-16629 NOT-TAKING GABAPENTIN 600 MG TABLET 1 CAPSULE ORALLY AT BEDTIME FOR PAIN NOT-TAKING SUCRALFATE 1 GM TABLET 1 TABLET ON AN EMPTY STOMACH ORALLY QID NOT-TAKING [facility] FLUTICASONE PROPIONATE 50 MCG/ACT SUSPENSION 1 SPRAY IN EACH NOSTRIL NASALLY BID NOT-TAKING GLUCOMETER . GLUCOMETER E11.9 - 3 TIMES PER WEEK NOT-TAKING GE100 TEST STRIPS _ LANCETS DIRECTED E11.9 3 TIMES PER WEEK NOT-TAKING LANCETS 30G . MISCELLANEOUS E11.9 _ THREE TIMES PER WEEK MEDICATION LIST REVIEWED AND RECONCILED WITH THE PATIENT PAST MEDICAL HISTORY ANXIETY ASTHMA BREAST CANCEER KIDNEY STONES DEPRESSION FIBROMYALGIA PNEUMONIA RESTLESS LEGS SHINGLES ALLERGIES HEPARIN COMBINATION: HIVES: ALLERGY SULFASALAZINE: ASTHMA: ALLERGY VANCOMYCIN HCL: ANAPHYLAXIS: ALLERGY SULFITES: ASTHMA: ALLERGY STRAWBERRIES: HIVES: ALLERGY CYCLOBENZAPRINE HCL: DISORIENTATION: ALLERGY TAPE: BLISTERS: ALLERGY BEES: ANAPHYLAXIS: ALLERGY REVIEW OF SYSTEMS REVIEWED BY: PROVIDER: . CONSTITUTIONAL: ANY CHANGE IN YOUR MEDICAL CONDITION? NO . CHILLS NO . FEVER NO . INFECTION: DO YOU HAVE NEW INFECTIONS? NO . DO YOU HAVE HISTORY OF MRSA? NO . MUSCULOSKELETAL: ANY NEW PATTERNS OF PAIN OR NUMBNESS? NO . GASTROENTEROLOGY: ANY NEW CHANGE IN BOWEL CONTROL? NO . GENITOURINARY: ANY NEW CHANGE IN BLADDER CONTROL? NO . IS THERE A CHANCE YOU COULD BE ? NO . HEMATOLOGY/LYMPH: DO YOU TAKE ANY BLOOD THINNERS? (FOR EXAMPLE- COUMADIN, PLAVIX, AGGRENOX, PLATEL, PRADAXA, OR XARELTO) NO . WHEN WAS YOUR LAST DOSE? DATE: TIME: . NEUROLOGY: HAVE YOU FALLEN IN THE PAST 6 MONTHS? NO . ANY NEW EXTREMITY NUMBNESS OR WEAKNESS? NO . CARDIOLOGY: DO YOU HAVE A PACEMAKER OR DEFIBRILLATOR? NO . RESPIRATORY: HAVE YOU BEEN SICK IN THE PAST WEEK? NO . FEVER NO . FLU LIKE SYMPTOMS? NO . COUGH NO . INTEGUMENTARY: DO YOU HAVE ANY RASHES OR OPEN SORES? NO . ALLERGIC/IMMUNO: ARE YOU ALLERGIC TO SHELLFISH OR IV DYE? NO . ANY NEW ALLERGIES? NO . PSYCHIATRIC: DO YOU HAVE THOUGHTS OF HURTING YOURSELF OR SOMEONE ELSE? NO . ARE YOU ABUSED, NEGLECTED, OR IN AN UNSAFE ENVIRONMENT? NO . ENDOCRINOLOGY: ARE YOU DIABETIC? YES . OTHER: DO YOU NEED ANY PRESCRIPTIONS? NO . IF YES, PLEASE LIST: ____ . ANY NEW PROBLEMS WITH YOUR MEDICATIONS? NO . WHEN DID YOU LAST EAT? 12-20-16 1900 . WHEN DID YOU LAST DRINK? 12-21-16 0630 . WHAT DID YOU LAST DRINK? WATER . NAME OF PERSON DRIVING YOU HOME? KENDRICK DOHERTY . DO YOU HAVE ANY OTHER QUESTIONS OR CONCERNS NO . VITAL SIGNS WT 227 LBS, HT 63 IN, BMI 40.21 INDEX, BP 132/72 MM HG, HR 80 /MIN, RR 18 /MIN, TEMP 98.1 F, OXYGEN SAT % 97%, NA INITIALS SC 08:50, REVIEWED BY: CM. ASSESSMENTS MYALGIA - M79.1 (PRIMARY) PROCEDURES PN TRIGGER POINT INJECTION WITH STEROIDS PRE PROCEDURE DIAGNOSIS 1. MYALGIA 2. PAIN AT BILATERAL LOWER BACK AREA POST PROCEDURE DIAGNOSIS 1. MYALGIA 2. PAIN AT BILATERAL LOWER BACK AREA PROCEDURE TRIGGER POINT INJECTION AT BILATERAL LOWER BACK AREA SURGEON DR. ARSALAN JOSEPH ENGRAVER PANTOGRAPH NONE ANESTHESIA LOCAL PRE PROCEDURE NOTE THE PATIENT HAS A HISTORY OF CHRONIC PAIN AT THE RIGHT AND LEFT LOWER BACK AREA. I EVALUATE THE PATIENT AND REVIEWED THE CHART. THERE IS EVIDENCE OF BANDS OF TISSUE WITH RESTRICTION OF MOVEMENT AND PRESENCE OF TRIGGER POINT AT THE AFFECTED AREA. I WENT OVER THE RISKS, ALTERNATIVES, AND BENEFITS ASSOCIATED WITH THIS PROCEDURE. THE PATIENT WOULD LIKE TO PROCEED AND GIVE CONSENT TO PERFORMED THE PROCEDURE. THE PATIENT DENIES UNEXPLAINABLE WEIGHT LOSS, FEVER, CHILLS, OR NEW CHANGES IN URINARY OR BOWEL CONTROL DESCRIPTION OF PROCEDURE THE PATIENT WAS BROUGHT TO THE PROCEDURE ROOM AND PLACED IN THE SITTING POSITION. THE AREA WAS CLEANED WITH ALCOHOL. THE PROCEDURE WAS DONE USING ASEPTIC STERILE TECHNIQUE. I CHECKED LATERALITY AND THE LEVEL WHERE THE PROCEDURE WAS GOING TO BE PERFORMED WITH THE PATIENT AND THE SUPPORTING STAFF AT THE MOMENT OF THE TIME OUT IN THE PROCEDURE ROOM. USING A 25-GAUGE NEEDLE, TRIGGER POINTS WERE INJECTED AT THE RIGHT AND LEFT LOWER BACK AREA WITH A TOTAL OF 40 ML OF BUPIVACAINE 0.25% AND KENALOG 40 MG. THERE WAS NO EVIDENCE OF BLOOD, PARESTHESIA OR CEREBROSPINAL FLUID DURING THE PROCEDURE. THE PATIENT WAS SENT TO THE RECOVERY ROOM. THE PATIENT WAS MOVING THE EXTREMITIES AND DOING WELL. THERE WAS NO COMPLICATION DURING THE PROCEDURE POST PROCEDURE NOTE THE PATIENT WILL BE SEEN IN A FOLLOW UP IN THE NEXT FEW WEEKS. INSTRUCTIONS WERE GIVEN, QUESTIONS WERE ANSWERED, AND THE PATIENT EXPRESSED UNDERSTANDING AND AGREES WITH THE PLAN. I, MARY SURESH, DOCUMENTED THE ABOVE INFORMATION ACTING A SCRIBE FOR DR. JOSEPH. I, DR. JOSEPH, HAVE REVIEWED THE ABOVE DOCUMENT, SCRIBED BY MARY SURESH, AND I VERIFY THAT IT IS ACCURATE PROCEDURE CODES 70672 INJ TRIGGER POINT / [facility] COMMUNICATION FOLLOW UP 3 WEEKS ELECTRONICALLY SIGNED BY ARSALAN JOSEPH MD ON 01/04/2017 AT 08:43 PM EDT DISCLAIMER : THIS IS A VISIT SUMMARY EXTRACTED FROM THE [employer] CHART. IT IS NOT A COPY OF THE [employer] PROGRESS NOTE. SCOUT
== END | disposition home or self-care (01) ==
LOC: M PAIN 08:30
PROVIDERS: ATTEND Anesthesiology
DX: G89.29 Other chronic pain (principal); M79.1 Myalgia; F41.9 Anxiety disorder, unspecified; J45.909 Unspecified asthma, uncomplicated; Z85.3 Personal history of malignant neoplasm of breast; Z87.442 Personal history of urinary calculi; D33.9 Benign neoplasm of central nervous system, unspecified; Z87.19 Personal history of other diseases of the digestive system; G25.81 Restless legs syndrome; B02.9 Zoster without complications; Z79.899 Other long term (current) drug therapy; Z79.82 Long term (current) use of aspirin; Z88.1 Allergy status to other antibiotic agents; Z88.2 Allergy status to sulfonamides; Z88.8 Allergy status to other drugs, medicaments and biological substances; Z91.018 Allergy to other foods; Z91.030 Bee allergy status; L23.1 Allergic contact dermatitis due to adhesives
CPT/HCPCS: 20552; J3301

== ENCOUNTER → 2017-01-21 | Outpatient (CLI) | payer MEDICARE, MEDICAID ==
[~2017-01-21] VITALS: Ht 160 cm; Wt 100.2 kg
[~2017-01-21] MED LIST changes: -BUPIVACAINE HCL 0.25% 10 ML VIAL As Ordered ONE; -BUPIVACAINE HCL 0.25% 30 ML VIAL As Ordered ONE; +LIDOCAINE 2% INJ 100 MG/5 ML SDV (FOR ANES.) As Ordered ONE; +NS 1,000 ML IV ONE; +PROPOFOL 200 MG/20 ML VIAL As Ordered ONE; -TRIAMCINOLONE ACETONIDE SUSP 40 MG/ML VIAL (J3301) As Ordered ONE
--- NOTE | 2017-01-21 10:39 | ROOR ---
Patient Name: Aurelia Diallo Procedure Date: 01/21/2017 10:11 AM Date of : 1955 Age: 62 Room: [facility] Gender: Female Note Status: Finalized Procedure: Upper GI endoscopy Indications: Epigastric abdominal pain, Functional Dyspepsia, Abnormal UGI series Providers: Dwaine GEORGE MD Referring MD: RASHEL LENZ MD Requesting Provider: Medicines: Monitored Anesthesia Care Complications: No immediate complications. Procedure: Pre-Anesthesia Assessment: - The heart rate, respiratory rate, oxygen saturations, blood pressure, adequacy of pulmonary ventilation, and response to care were monitored throughout the procedure. The Endoscope was introduced through the mouth, and advanced to the jejunum. The upper GI endoscopy was accomplished without difficulty. The patient tolerated the procedure well. Findings: Evidence of a Deana-en-Y gastrojejunostomy was found. The gastrojejunal anastomosis was characterized by healthy appearing mucosa. This was traversed. The agzdv-[id number]-cqvfppk limb was characterized by healthy appearing mucosa. The ccvhcpqd-xa-mvqodmf limb was examined. The exam of the stomach was otherwise normal. The examined esophagus was normal. The examined jejunum was normal. Impression: - Deana-en-Y gastrojejunostomy with gastrojejunal anastomosis. Widely patent and characterized by healthy appearing mucosa. - The stomach is otherwise normal. - Normal esophagus. - Normal examined jejunum. -(there is no ulceration, there is no obstruction or restriction) - No specimens collected. Recommendation: - Eat smaller, more frequent meals throughout the day. - Low fat diet. - Liquid/soft foods are tolerated better than solid foods. - Low fiber/well cooked vegetables are tolerated better than high fiber/fibrous foods/raw vegetables. - Avoid medications that inhibit gastric/intestinal motility such as narcotic medications. - I will re evaluate your gallbladder- My office will call you to set up a gallbladder nuclear scan. Dwaine George MD Dwaine GEORGE MD 01/21/2017 10:39:48 AM This report has been signed electronically. Number of Addenda: 0 Note Initiated On: 01/21/2017 10:11 AM Estimated Blood Loss: Estimated blood loss: none.
[2017-01-21 11:03] VITALS: BP 138/73
== END | disposition home or self-care (01) ==
LOC: M OPP 08:50
PROVIDERS: ATTEND Internal Medicine Gastroenterology
DX: R93.3 Abnormal findings on diagnostic imaging of other parts of digestive tract (principal); R10.13 Epigastric pain; K30 Functional dyspepsia; Z98.0 Intestinal bypass and anastomosis status; E78.5 Hyperlipidemia, unspecified; E11.9 Type 2 diabetes mellitus without complications; M54.9 Dorsalgia, unspecified; F32.9 Major depressive disorder, single episode, unspecified; J45.909 Unspecified asthma, uncomplicated; J44.9 Chronic obstructive pulmonary disease, unspecified; Z85.3 Personal history of malignant neoplasm of breast; Z92.3 Personal history of irradiation; Z87.442 Personal history of urinary calculi; Z98.84 Bariatric surgery status; Z87.19 Personal history of other diseases of the digestive system; G25.81 Restless legs syndrome; Z88.8 Allergy status to other drugs, medicaments and biological substances; Z88.1 Allergy status to other antibiotic agents; Z91.048 Other nonmedicinal substance allergy status; Z91.018 Allergy to other foods; Z79.899 Other long term (current) drug therapy; Z80.3 Family history of malignant neoplasm of breast

== ENCOUNTER → 2017-02-15 | Outpatient (CLI) | payer MEDICARE, MEDICAID ==
[~2017-02-15] MED LIST changes: -LIDOCAINE 2% INJ 100 MG/5 ML SDV (FOR ANES.) As Ordered ONE; -NS 1,000 ML IV ONE; -PROPOFOL 200 MG/20 ML VIAL As Ordered ONE
--- NOTE | 2017-02-15 12:00 | REP ---
Hepatobiliary scan and gallbladder ejection fraction: History: Nausea and vomiting. Technique: 6.6 mCi of technetium-99m mebrofenin was injected and sequential anterior images are acquired. 65 minutes after the mebrofenin injection, the patient consumed 8 ounces Ensure and an additional 60 minutes of imaging was acquired. Regions of interest are plotted around the gallbladder. Findings: The initial hepatocellular parenchymal uptake phase is normal and homogeneous. Intra- and extra-hepatic bile ducts and duodenum are labeled by the 10 -minute image. The gallbladder is first labeled on the 30 -minute image. There is normal washout from the liver parenchyma into the gallbladder and small intestine on subsequent images. The gallbladder ejection fraction is zero %. Values greater than 35 % are considered normal with this technique. Impression: Normal hepatobiliary scan and decreased gallbladder ejection fraction. Signed by Asad Vinson MD 02/15/2017 11:51 A
== END ==
LOC: M RAD 09:13
PROVIDERS: ATTEND Internal Medicine Gastroenterology
DX: K82.8 Other specified diseases of gallbladder (principal); R11.2 Nausea with vomiting, unspecified
CPT/HCPCS: 78227; A9537; J2805

== ENCOUNTER → 2017-09-08 | Outpatient (REF) | payer MEDICARE, MEDICAID ==
[2017-09-08 11:02] LABS: BASO % 0.3 % (0.0-1.0); EOS # 0.2 10^3/uL (0.0-0.50); EOS % 2.9 % (0.0-3.0); HEMOGLOBIN 12.9 g/dl (12.0-16.0); IMMATURE GRANULOCYTE % 0.3 % (0-3.0); LYMPH # 1.9 10^3/uL (1.5-4.5); LYMPH % 32.4 % (24.0-44.0); MEAN CORPUSCULAR HEMOGLOBIN 29.6 pg (27.0-33.0); MEAN CORPUSCULAR HGB CONC 32.3 g/dl (32.0-36.5); MEAN CORPUSCULAR VOLUME 91.7 fl (80.0-96.0); MONO # 0.6 10^3/uL (0.0-0.8); MONO % 9.9 % (0.0-5.0); NEUTROPHILS # 3.2 10^3/uL (1.8-7.7); NEUTROPHILS % 54.2 % (36.0-66.0); PLATELET COUNT, AUTOMATED 255 10^3/uL (150-450); RED BLOOD COUNT 4.36 10^6/uL (4.00-5.40); RED CELL DISTRIBUTION WIDTH 13.9 % (11.5-14.5); WHITE BLOOD COUNT 5.9 10^3/uL (4.0-10.0)
[2017-09-08 11:50] LABS: ALBUMIN 3.6 GM/DL (3.2-5.2); ALBUMIN/GLOBULIN RATIO 0.92 (1.00-1.93); ALKALINE PHOSPHATASE 72 U/L (45-117); ALT/SGPT 23 U/L (12-78); ANION GAP 8 MEQ/L (8-16); AST/SGOT 21 U/L (7-37); BILIRUBIN,TOTAL 0.9 MG/DL (0.2-1.0); BLOOD UREA NITROGEN 16 MG/DL (7-18); CALCIUM LEVEL 8.9 MG/DL (8.8-10.2); CARBON DIOXIDE LEVEL 31 MEQ/L (21-32); CHLORIDE LEVEL 100 MEQ/L (98-107); CHOLESTEROL LEVEL 229 MG/DL (<200); CREATININE FOR GFR 0.91 MG/DL (0.55-1.30); GLOMERULAR FILTRATION RATE > 60.0 (>45); GLUCOSE, FASTING 100 MG/DL (70-100); HDL CHOLESTEROL 72 MG/DL (>40); LDL CHOLESTEROL 130.4 MG/DL (<100); NON-HDL-C 157 MG/DL; SODIUM LEVEL 139 MEQ/L (136-145); TOTAL PROTEIN 7.5 GM/DL (6.4-8.2); TRIGLYCERIDES LEVEL 133 MG/DL (<150)
[2017-09-08 12:56] LABS: ESTIMATED AVERAGE GLUCOSE 100 MG/DL (60-110); HEMOGLOBIN A1c 5.1 %
== END ==
LOC: M SFHCCLAY 09:27
DX: J44.9 Chronic obstructive pulmonary disease, unspecified (principal); E11.9 Type 2 diabetes mellitus without complications
CPT/HCPCS: 80053

== ENCOUNTER → 2017-09-19 | Outpatient (CLI) | payer MEDICARE, MEDICAID | LOC: M PAIN 09:45 | DX: G89.29 Other chronic pain (principal); M12.88 Other specific arthropathies, not elsewhere classified, other specified site; M47.817 Spondylosis without myelopathy or radiculopathy, lumbosacral region; F41.9 Anxiety disorder, unspecified; J45.909 Unspecified asthma, uncomplicated; F32.9 Major depressive disorder, single episode, unspecified; M79.7 Fibromyalgia; G25.81 Restless legs syndrome; Z85.3 Personal history of malignant neoplasm of breast; Z79.82 Long term (current) use of aspirin; Z88.2 Allergy status to sulfonamides; Z88.1 Allergy status to other antibiotic agents; Z91.030 Bee allergy status; Z88.8 Allergy status to other drugs, medicaments and biological substances; Z91.018 Allergy to other foods; Z91.048 Other nonmedicinal substance allergy status | CPT/HCPCS: G0463 ==

== ENCOUNTER → 2017-10-03 | Outpatient (CLI) | payer MEDICARE, MEDICAID ==
[~2017-10-03] MED LIST changes: -ADV500INH INH; -ALBU0.63 INH; -ALBU17IN INH; -ALLO100T PO; -AMBI5TAB PO; -AMIT100TA PO; -BACL10TA2 PO; +BUPIVACAINE HCL 0.25% 30 ML VIAL As Ordered; -CLON0.5T PO; -DILA4TAB13 PO; -DULO1CAP2 PO; -DULO30CA PO; -HYDR-3363 PO; +ISOVUE-M 300 61% 15ML VIAL (Q9967) As Ordered; -LIDO1OIN2 TOP; -LIDO5DIS41 TD; +LIDOCAINE 1% SDV INJ 30 ML VIAL As Ordered; -LYRI150C PO; -MACR100C43 PO; -MULTCAP PO; -NEUR300C PO; -PANT40TA2 PO; -PROP1TAB29 PO; -REQU1TAB15 PO; -ROBA750T4 PO; -SING10TA32 PO; -SYMB80INH INH; -TIOT18INH INH; -TOPA50TA8 PO; -TRAZ50TA11 PO; -VIST25CA PO; -VITA100066 PO; -VITA500T3 PO; -[UNRECOGNIZED DRUG - CODE] PO; -[UNRECOGNIZED DRUG - OTHER] PO; -cholesterol pill PO
== END ==
LOC: M PAIN 08:45
DX: G89.29 Other chronic pain (principal); M47.817 Spondylosis without myelopathy or radiculopathy, lumbosacral region; E11.9 Type 2 diabetes mellitus without complications; J45.909 Unspecified asthma, uncomplicated; F41.9 Anxiety disorder, unspecified; F32.9 Major depressive disorder, single episode, unspecified; M79.7 Fibromyalgia; G25.81 Restless legs syndrome; Z79.82 Long term (current) use of aspirin; Z79.899 Other long term (current) drug therapy; Z88.1 Allergy status to other antibiotic agents; Z88.2 Allergy status to sulfonamides; Z88.8 Allergy status to other drugs, medicaments and biological substances; Z91.018 Allergy to other foods; Z91.030 Bee allergy status; Z91.09 Other allergy status, other than to drugs and biological substances; Z85.3 Personal history of malignant neoplasm of breast
CPT/HCPCS: Q9967

== ENCOUNTER → 2017-11-08 | Outpatient (CLI) | payer MEDICARE, MEDICAID | LOC: M PAIN 11:00 | DX: M47.817 Spondylosis without myelopathy or radiculopathy, lumbosacral region (principal); M12.88 Other specific arthropathies, not elsewhere classified, other specified site; E11.9 Type 2 diabetes mellitus without complications; F41.9 Anxiety disorder, unspecified; J45.909 Unspecified asthma, uncomplicated; F32.9 Major depressive disorder, single episode, unspecified; M79.7 Fibromyalgia; G25.81 Restless legs syndrome; Z79.82 Long term (current) use of aspirin; Z79.899 Other long term (current) drug therapy; Z88.1 Allergy status to other antibiotic agents; Z88.2 Allergy status to sulfonamides; Z88.8 Allergy status to other drugs, medicaments and biological substances; Z91.030 Bee allergy status; Z91.038 Other insect allergy status; Z91.09 Other allergy status, other than to drugs and biological substances; Z85.3 Personal history of malignant neoplasm of breast | CPT/HCPCS: G0463 ==

== ENCOUNTER → 2017-11-29 | Outpatient (CLI) | payer MEDICARE, MEDICAID ==
[~2017-11-29] MED LIST changes: -ISOVUE-M 300 61% 15ML VIAL (Q9967) As Ordered; +TRIAMCINOLONE ACETONIDE SUSP 40 MG/ML VIAL (J3301) As Ordered
== END ==
LOC: M PAIN 13:00
DX: G89.29 Other chronic pain (principal); M47.816 Spondylosis without myelopathy or radiculopathy, lumbar region; M47.817 Spondylosis without myelopathy or radiculopathy, lumbosacral region; F41.9 Anxiety disorder, unspecified; J45.909 Unspecified asthma, uncomplicated; F32.9 Major depressive disorder, single episode, unspecified; M79.7 Fibromyalgia; G25.81 Restless legs syndrome; Z88.1 Allergy status to other antibiotic agents; Z88.2 Allergy status to sulfonamides; Z88.8 Allergy status to other drugs, medicaments and biological substances; Z91.018 Allergy to other foods; Z91.09 Other allergy status, other than to drugs and biological substances; Z91.030 Bee allergy status; Z85.3 Personal history of malignant neoplasm of breast
CPT/HCPCS: J3301

== ENCOUNTER 2017-12-05 07:27 | Day surgery (SDC) | payer MEDICARE, MEDICAID ==
[2017-12-05] MEDS: NS 1,000 ML IV (07:45)
[2017-12-05] MEDS ORDERED: PROPRANOLOL 20 MG TAB PO (09:00)
[2017-12-05] MEDS ORDERED: PROPOFOL 200 MG/20 ML VIAL As Ordered (09:18)
[2017-12-05] MEDS ORDERED: LIDOCAINE 2% INJ 100 MG/5 ML SDV (FOR ANES.) As Ordered (09:18)
== END 2017-12-05 10:03 | disposition home or self-care (01) ==
LOC: M OPP 07:27
DX: Z12.11 Encounter for screening for malignant neoplasm of colon (principal); E78.5 Hyperlipidemia, unspecified; M19.90 Unspecified osteoarthritis, unspecified site; M79.7 Fibromyalgia; M54.9 Dorsalgia, unspecified; E11.9 Type 2 diabetes mellitus without complications; Z86.19 Personal history of other infectious and parasitic diseases; Z85.3 Personal history of malignant neoplasm of breast; Z92.3 Personal history of irradiation; F32.9 Major depressive disorder, single episode, unspecified; J45.909 Unspecified asthma, uncomplicated; J44.9 Chronic obstructive pulmonary disease, unspecified; G47.30 Sleep apnea, unspecified; G25.81 Restless legs syndrome; Z87.442 Personal history of urinary calculi; Z87.19 Personal history of other diseases of the digestive system; Z98.84 Bariatric surgery status; Z96.653 Presence of artificial knee joint, bilateral; Z88.8 Allergy status to other drugs, medicaments and biological substances; Z88.1 Allergy status to other antibiotic agents; Z88.2 Allergy status to sulfonamides; Z91.048 Other nonmedicinal substance allergy status; Z91.018 Allergy to other foods; Z79.899 Other long term (current) drug therapy; Z80.3 Family history of malignant neoplasm of breast
CPT/HCPCS: G0121

== ENCOUNTER → 2017-12-16 | Outpatient (REF) ==
[2017-12-16 16:22] LABS: ETHYL ALCOHOL (ETHANOL) 0.123 % (0.000-0.010)
== END ==
LOC: M LAB 09:48
DX: Z02.89 Encounter for other administrative examinations (principal)